=== PATIENT | female | born 1965 | race Caucasian/White ===

== ENCOUNTER → 2016-12-04 | Outpatient (CLI) | payer BC, MEDICARE ==
--- NOTE | 2016-12-04 13:07 | MR ---
Left wrist MRI HISTORY: Pain, left wrist cyst On the planar multisequence imaging through the left wrist No comparisons At the level of the flexor carpi radialis tendon at the site marked with an overlying marker there is cystic focus surrounding the tendon possibly within the tendon sheath which show some internal septa tions and increased signal on T1 and T2-weighted sequences. The cystic focus measures approximately 8 mm in greatest transverse dimension by approximately 3 cm and proximal to distal dimension and is bass perficial just beneath the skin. There is some minimal extension of the cystic signal into the inters pace between the proximal first and second metacarpals. Additional cystic focus is present just later al to the trapezium measuring approximately 6 mm in greatest dimension with internal septations. The proximal first metacarpal shows some intermediate signal on T1, increased signal on T2-weighted seque nces and shows a nonaggressive appearance, consider comparison with plain film and correlate for any previous history, intervention. Some fluid signal is present adjacent to the proximal first metacarpa l, small ossific density, there is eburnation at the trapezium metacarpal joint compatible with osteo arthritic change. Triangular fibrocartilage, scapholunate, lunotriquetral ligaments are intact. Flexor and extensor ten dons are intact. There is no evident joint effusion. IMPRESSION: Recurrence of patient's probable ganglion cyst. Indeterminate nonaggressive cystic appear ance within the first metacarpal. Additional 6 mm ganglion cyst as described.
== END | disposition home or self-care (01) ==
LOC: RADMRIMAIN 06:37
PROVIDERS: ATTEND Family Medicine
DX: M67.432 Ganglion, left wrist (principal)

== ENCOUNTER 2023-02-20 17:36 | Inpatient (IN) | payer BC, MEDICARE, OTHER ==
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
[2023-02-20 19:20] LABS: Amphetamine Screen,Urine Not Detected (NotDetected); Barbiturate Screen,Urine Not Detected (NotDetected); Benzodiazepines Screen,Urine Not Detected (NotDetected); Cocaine Screen,Urine Not Detected (NotDetected); Methadone Screen, Urine Not Detected (NotDetected); Opiate Screen,Urine Not Detected (NotDetected); Oxycodone Screen, Urine Not Detected (NotDetected); Phencyclidine Screen,Urine Not Detected (NotDetected); Tricyclic Antidepressant,Urine Not Detected (NotDetected); Urn Cannabinoid Scrn Detected (NotDetected)
[2023-02-20 20:43] LABS: Appearance,Urine Clear (Clear); Bilirubin,Urine Negative (Negative); Blood,Urine Negative (Negative); Color,Urine Colorless; Glucose,Urine (UA) Negative (Negative); Ketones,Urine Trace (Negative); Leukocyte Esterase,Urine Negative (Negative); Nitrite,Urine Negative (Negative); Protein,Urine Negative (Negative); Specific Gravity,Urine 1.004 (1.001-1.035); Urobilinogen,Urine <2.0 mg/dL (<2.0)
[2023-02-20] MEDS ORDERED: MAGNESIUM HYDROXIDE 2,400 MG/30 ML CUP PO PRN (21:26)
[2023-02-20] MEDS ORDERED: LORazepam 1 MG TAB PO PRN (21:26)
[2023-02-20] MEDS ORDERED: HALOPERIDOL LACTATE 5 MG/ML 1 ML VIAL IM PRN (21:29)
[2023-02-20] MEDS ORDERED: LORazepam 2 MG/ML INJ IM PRN (21:29)
[2023-02-21] MEDS: haloperidoL 5 MG TAB PO PRN (00:16)
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
[2023-02-21] MEDS: DIVALPROEX 500 MG TABLET.DR PO SCH ×2 (08:51→21:58)
[2023-02-21] MEDS: OLANZapine 2.5 MG TAB PO SCH (08:52)
[2023-02-21] MEDS: NICOTINE 14MG/24HR PATCH TRANSDERM SCH (09:49)
[2023-02-21 12:21] LABS: HCT 43.2 % (34.0-46.0); HGB 14.3 gm/dL (11.4-16.0); MCH 32.9 pg (25.0-35.0); MCHC 33.1 g/dL (31.0-37.0); MCV 99.6 fL (80.0-100.0); Mean Platelet Volume 10.3; Platelet Count 182 k/uL (150-450); RBC 4.33 m/uL (3.80-5.40); RDW 13.1 % (11.5-15.5)
[2023-02-21 12:29] LABS: ALT 40 U/L (4-34); AST 49 U/L (14-36); African American GFR (CKD) >90 (>60 ml/min/1.73 sqM); Albumin 4.1 g/dL (3.5-5.0); Alkaline Phosphatase 54 U/L (38-126); Anion Gap 8 mmol/L; Blood Urea Nitrogen 10 mg/dL (7-17); Calcium 9.6 mg/dL (8.4-10.2); Carbon Dioxide 30 mmol/L (22-30); Chloride 97 mmol/L (98-107); Glucose 76 mg/dL (74-99); Non-African American GFR(CKD) 89 (>60 ml/min/1.73 sqM); Potassium 3.9 mmol/L (3.5-5.1); Sodium 135 mmol/L (137-145); Total Bilirubin 0.6 mg/dL (0.2-1.3); Total Protein 6.3 g/dL (6.3-8.2)
[2023-02-21] MEDS: droNABinol 2.5 MG CAP PO SCH (22:49)
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
[2023-02-21 23:18] LABS: Chol/HDL Ratio 2.58 Ratio; LDL Cholesterol,Calculated 143.4 mg/dL (0.0-131.0); VLDL Calculation 12.66 mg/dL (5.00-40.00)
[2023-02-22] MEDS: NICOTINE 14MG/24HR PATCH TRANSDERM SCH (08:01)
[2023-02-22] MEDS: droNABinol 2.5 MG CAP PO SCH ×2 (08:01→17:36)
[2023-02-22] MEDS: DIVALPROEX 500 MG TABLET.DR PO SCH ×2 (08:02→20:46)
[2023-02-22] MEDS: OLANZapine 2.5 MG TAB PO SCH (08:02)
[2023-02-22 12:35] VITALS: BMI 17.1
[2023-02-22] MEDS ORDERED: LORazepam 1 MG TAB PO PRN (13:41)
--- NOTE | 2023-02-22 14:11 | P.PN ---
Progress Note - Text Progress Note Date: 02/22/23 Interval history: Patient was seen today after eating her lunch and was agreeable to seek internal communications writer in the office today. patient spoke about having a spiritual awakening and was rambling about energy and attractions. she states that she is attracting a narcissist who is her . she states that she hears voices however states that it is "divine intervention". Patient was rambling at times, tangential. Appears to have poor insight and judgment at this time. claims that her sleep is on/off. claims her appetite is mildly improving. denies any si or hi at this time and denies any Ah or VH. claims that she is going to some of the groups however is not able to pay much attention. Mental status examination: General Appearance: Patient appears to be stated age is alert, directable, and cooperative. Behavior: Patient is laying in bed without any agitated behavior. Mildly intrusive, difficult to redirect Speech: Patient's speech is fluent and somewhat pressured, improving. Mood/Affect: Mood is euphoric affect is expansive, improving Suicidality/Homicidality: Patient reports no suicidal or homicidal ideation, intention, and/or plan at this time Perceptions: reports auditory hallucinations, denies any visual hallucinations Though content/process: Patient has flight of ideas with circumstantiality and tangentiality, bizzare, mild paranoia, improving mildly Memory and concentration: AOX3, attention is improving. Judgment and insight: Impaired Assessment Bipolar disorder manic with psychotic features Cannabis use disorder by history Plan: PLAN: -Patient is admitted under voluntary status to MHU for stabilization of psychiatric symptoms and safety. -Medications: d/c zyprexa and replace with invega PO 3 mg bid for mood stabilization/psychosis. continue with Depakote 500 mg twice a day. will speak with patient about transitioning to [facility] to help with compliance if she agrees. -Ativan and Haldol PRN for agitation/aggression -SW on board for discharge planning. Encourage patient to participate in groups to work on coping skills. patient states that she will sign the VIV for communication with her about d/c planning.
[2023-02-22] MEDS: PALIPERIDONE 3 MG TAB.ER.24 PO SCH ×2 (14:24→21:31)
[2023-02-22] MEDS: MAG HYDROX/AL HYDROX/SIMETH 30 ML CUP PO PRN (17:37)
[2023-02-22] MEDS: haloperidoL 5 MG TAB PO PRN (20:46)
[2023-02-23] MEDS: DIVALPROEX 500 MG TABLET.DR PO SCH ×2 (08:40→21:12)
[2023-02-23] MEDS: PALIPERIDONE 3 MG TAB.ER.24 PO SCH (08:40)
[2023-02-23] MEDS: NICOTINE 14MG/24HR PATCH TRANSDERM SCH (08:41)
[2023-02-23] MEDS: droNABinol 2.5 MG CAP PO SCH ×2 (08:41→17:13)
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
[2023-02-23] MEDS: PALIPERIDONE 6 MG TAB.ER.24 PO SCH (21:12)
[2023-02-23] MEDS: ACETAMINOPHEN TAB 325 MG TAB PO PRN (21:12)
[2023-02-24 07:20] VITALS: RESP 16
[2023-02-24] MEDS: droNABinol 2.5 MG CAP PO SCH ×2 (08:37→17:21)
[2023-02-24] MEDS: MAG HYDROX/AL HYDROX/SIMETH 30 ML CUP PO PRN (08:37)
[2023-02-24] MEDS: ACETAMINOPHEN TAB 325 MG TAB PO PRN (08:37)
[2023-02-24] MEDS: NICOTINE 14MG/24HR PATCH TRANSDERM SCH (08:38)
[2023-02-24] MEDS ORDERED: hydrOXYzine pamoate 25 MG CAP PO PRN (11:02)
--- NOTE | 2023-02-24 11:10 | P.PN ---
Progress Note - Text Progress Note Date: 02/24/23 Interval history: Patient was seen today sitting in the group was agreeable to speak to technical writer and editor ori ramirez. Patient was also noticed to be wandering the hallways morning. She claims that she is doing a bit better however claims that the change in temperature is than affecting some of her joints. She claims that she did well on ibuprofen previously and it was ordered. Claims that her sleep has been on and off at nighttime, we spoke about trying melatonin which she is acutely. She was rambling at times her purse seems to be improving in terms of her thought content and also her thought process. Claims that she is enjoying going to groups and participating as best she can. States that her appetite is mildly improving. Claims that she was feeling anxious yesterday however tasered better. denies any si or hi at this time and denies any Ah or VH. Not reporting any side effects at this time. Mental status examination: General Appearance: Patient appears to be stated age is alert, directable, and cooperative. Behavior: Patient is laying in bed without any agitated behavior. more di rectable today. Speech: Patient's speech is fluent and improving. Mood/Affect: Mood is fair affect is expansive, improving Suicidality/Homicidality: Patient reports no suicidal or homicidal ideation, intention, and/or plan at this time Perceptions: reports auditory hallucinations, denies any visual hallucinations Though content/process: Patient continues to be somewhat tangential however is improving. Denies any paranoia today. More logical. Memory and concentration: AOX3, attention is improving. Judgment and insight: Impaired, improving mildly Assessment Bipolar disorder manic with psychotic features Cannabis use disorder by history Plan: PLAN: -Patient is admitted under voluntary status to [facility]HU for stabilization of psychiatric symptoms and safety. -Medications: invega PO 6 mg qhs for mood stabilization/psychosis. will likely order PErseris SQ 90 mg IM tomorrow to help with compliance. Depakote 1000 mg qhs for mood stabilization. -Ativan and Haldol PRN for agitation/aggression -SW on board for discharge planning. Encourage patient to participate in groups to work on coping skills. will continue to awaiti to see if patient is improving psychiatrically. likely discharge once patient is transitioned safely onto [facility], likely wednesday d/c
[2023-02-24] MEDS: IBUPROFEN 600 MG TAB PO PRN (17:21)
[2023-02-24] MEDS ORDERED: MELATONIN 3 MG TABLET PO SCH (21:00)
[2023-02-24] MEDS: PALIPERIDONE 6 MG TAB.ER.24 PO SCH (21:36)
[2023-02-24] MEDS: DIVALPROEX 500 MG TABLET.DR PO SCH (21:36)
[2023-02-25 06:58] VITALS: BP 139/84; PULSE 133; TEMP 97
[2023-02-25] MEDS: NICOTINE 14MG/24HR PATCH TRANSDERM SCH (07:55)
[2023-02-25] MEDS: droNABinol 2.5 MG CAP PO SCH (07:55)
[2023-02-25] MEDS: IBUPROFEN 600 MG TAB PO PRN (07:56)
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
[2023-02-25] MEDS ORDERED: risperiDONE 90 MG SYR KIT (NO COST) PHARMACY STOCK SQ ONE (11:00)
== END 2023-02-25 13:55 | disposition home or self-care (01) | DRG 885 ==
LOC: EC 17:36 → 3MHU 21:22
PROVIDERS: ADMIT Psychiatry & Neurology Psychiatry; ATTEND Psychiatry & Neurology Psychiatry
DX: F31.2 Bipolar disorder, current episode manic severe with psychotic features (principal); F12.10 Cannabis abuse, uncomplicated; Z11.52 Encounter for screening for COVID-19; F17.290 Nicotine dependence, other tobacco product, uncomplicated; Z86.14 Personal history of Methicillin resistant Staphylococcus aureus infection; Z71.51 Drug abuse counseling and surveillance of drug abuser; Z71.41 Alcohol abuse counseling and surveillance of alcoholic
CPT/HCPCS: 80053; 80061; 80306; 81003; 81025; 82075; 83036; 84443; 85027; 87635; 99285